=== PATIENT | female | born 1985 | race Caucasian/White ===

== ENCOUNTER → 2023-11-02 08:32 | Outpatient (REF) | payer OTHER, SELFPAY | LOC: MRI 3T 08:32 | PROVIDERS: ATTENDING PHYSICIAN Psychiatry & Neurology Neurology; FAMILY PHYSICIAN Family Medicine | DX: M47.816 Spondylosis without myelopathy or radiculopathy, lumbar region (principal); M47.817 Spondylosis without myelopathy or radiculopathy, lumbosacral region | CPT/HCPCS: 72148 ==